=== PATIENT | female | born 1940 | race Caucasian/White ===

== ENCOUNTER → 2016-10-23 | Outpatient (CLI) | payer MEDICARE, OTHER ==
[~2016-10-23] MED LIST: AMLO10TA2 PO; ASPI-611 PO; CALC-587 PO; CARV12.525 PO; FISH1CAP59 PO; LISI40TA95 PO; METF-47 PO; MULT-798 PO; PRAV10TA42 PO
[2016-10-23 12:02] LABS: BASOPHILS % (AUTO) 0.1 % (0-2); EOSINOPHILS # (AUTO) 0.1 T/MM3 (0-0.5); EOSINOPHILS % (AUTO) 1.1 % (0-4); HCT - HEMATOCRIT 43.1 % (36-46); HGB - HEMOGLOBIN 14.2 GM/DL (12-16); IMMATURE GRANULOCYTE # (AUTO) 0.01 T/MM3 (0.00-0.03); IMMATURE GRANULOCYTE % (AUTO) 0.1 % (0.0-0.5); LYMPHOCYTES # (AUTO) 2.1 T/MM3 (1-4.8); LYMPHOCYTES % (AUTO) 27.2 % (23-45); MEAN CORPUSCULAR HGB 30.5 UUG (26-34); MEAN CORPUSCULAR HGB CONC(MCHC 32.9 GM/DL (31-37); MEAN CORPUSCULAR VOLUME 92.7 UM3 (80-100); MEAN PLATELET VOLUME 10.6 UM3 (9.4-12.4); MONOCYTES # (AUTO) 0.5 T/MM3 (0-0.8); NEUTROPHILS #(AUTO)-ABSOLUTE 5.1 T/MM3 (1.8-7.7); NEUTROPHILS % (AUTO) 65.5 % (33-66); RED BLOOD COUNT 4.65 M/MM3 (4.00-5.20); WBC - WHITE BLOOD COUNT 7.8 T/MM3 (4.5-11.0)
[2016-10-23 12:13] LABS: ALBUMIN 4.1 G/DL (3.5-5.0); ALBUMIN/GLOBULIN RATIO 1.3 RATIO (1.1-2.2); ALKALINE PHOSPHATASE 70 U/L (38-126); ALT (SGPT) 105 U/L (9-52); ANION GAP 14 MEQ/L (5-15); AST (SGOT) 66 U/L (14-36); BUN/CREATININE RATIO 20 RATIO (6-26); CALCIUM 9.6 MG/DL (8.4-10.2); CHLORIDE 106 MEQ/L (98-107); CO2 - CARBON DIOXIDE 27 MEQ/L (22-30); GLOMERULAR FILTRATION RATE 54; GLUCOSE 185 MG/DL (65-110); POTASSIUM 4.4 MEQ/L (3.6-5); SODIUM 147 MEQ/L (134-144); TOTAL PROTEIN 7.2 G/DL (6.3-8.2)
== END ==
LOC: LAB 11:35
PROVIDERS: ATTEND Internal Medicine Hematology & Oncology
DX: D01.0 Carcinoma in situ of colon (principal)
CPT/HCPCS: 36415; 80053; 82378; 85025